=== PATIENT | female | born 1960 | race Caucasian/White ===

== ENCOUNTER 2018-06-09 10:09 | Inpatient (IN) ==
[2018-06-09] MEDS ORDERED: methylPREDNISolone SOD SUC 125 MG/2 ML VIAL IV STA (10:32)
[2018-06-09] MEDS ORDERED: ALBUTEROL 2.5 MG/3 ML NEB RESP TX STA (10:34)
[2018-06-09 11:08] LABS: Basophils % 0.6 % (0.0-0.8); Eosinophils # 0.1 10*3/uL (0.0-0.87); Eosinophils % 2.5 % (0.00-10.9); Hemoglobin 12.4 GM/DL (12.0-16.0); Immature Granulocytes % 0.4 %; Immature Granulocytes Absolute 0.02 #; Lymphocytes # 0.9 10*3/uL (1.4-4.0); Mean Corpuscular HGB Conc 30.2 GM/DL (32-36); Mean Corpuscular Volume 92.6 FL (87-102); Mean Platelet Volume 10.5 FL (9.6-12.0); Neutrophils % 69.5 % (38.7-73.9); Platelet Count 147 T/CUMM (130-400); Red Blood Count 4.43 MC/CUMM (3.8-5.5); Red Cell Distribution Width 16.2 % (9.3-17.3); White Blood Count 5.2 T/CUMM (4-12)
[2018-06-09 11:21] LABS: Apearance,Urine CLOUDY (Clear); Bilirubin,Urine Negative (Negative); Blood, Urine Moderate mg/dL (Negative); Glucose,Urine (UA) Negative (Negative); Ketones,Urine Negative (Negative); Mucus,Urine Occasional /LPF (Occasional); Nitrite,Urine Negative (Negative); Protein,Urine >=500 MG/DL; RBC,Urine 63 /HPF (0-4); Urine Color Amber (Yellow); Urine Specific Gravity 1.019 (1.001-1.035); Urine Urobilinogen < 2.0 EU/DL (0.2-1.0); WBC,Urine 1161 /HPF (0-6)
[2018-06-09 11:45] LABS: Albumin 3.5 G/DL (3.4-5.0); Bilirubin,Total 0.7 MG/DL (0.2-1.0); Calcium 8.2 MG/DL (8.5-10.1); Osmolality,Calculated 279.5 MOS/KG (273-304); Total Protein 8.3 G/DL (6.4-8.3)
[2018-06-09] MEDS ORDERED: FUROSEMIDE 40 MG/4 ML VIAL IV STA (11:52)
[2018-06-09] MEDS ORDERED: cefTRIAXone 1,000 MG in SODIUM CHLORIDE 0.9% 100 ML IV STA (11:53)
[2018-06-09] MEDS ORDERED: PROMETHAZINE 25 MG/1 ML VIAL IM PRN (12:05)
[2018-06-09] MEDS ORDERED: ACETAMINOPHEN 325 MG TABLET PO PRN (12:05)
[2018-06-09] MEDS ORDERED: LOPERAMIDE 2 MG CAPSULE PO PRN (12:46)
[2018-06-09] MEDS ORDERED: MAGNESIUM HYDROXIDE SUSP 30 ML UDCUP PO PRN (12:46)
[2018-06-09] MEDS ORDERED: ALBUTEROL/IPRATROPIUM 3 ML NEB RESP TX SCH (13:00)
[2018-06-09] MEDS: DORNASE ALFA 2.5 MG/2.5 ML VIAL RESP TX SCH ×2 (13:57→19:07)
[2018-06-09] MEDS ORDERED: ALBUTEROL 2.5 MG/3 ML NEB RESP TX PRN (14:30)
[2018-06-09] MEDS ORDERED: traZODone 50 MG TABLET PO PRN (14:30)
[2018-06-09] MEDS: LEVOFLOXACIN INJ 750 MG in PREMIX 1 EACH IV SCH (14:51)
[2018-06-09] MEDS: guaiFENesin/DM ER 600-30 MG TABLET PO SCH ×2 (14:51→20:32)
[2018-06-09] MEDS ORDERED: FUROSEMIDE 40 MG/4 ML VIAL IV SCH (16:00)
[2018-06-09] MEDS: methylPREDNISolone SOD SUC 125 MG/2 ML VIAL IV SCH (16:48)
[2018-06-09] MEDS: CEFEPIME 1,000 MG in SODIUM CHLORIDE 0.9% 100 ML IV SCH (16:49)
[2018-06-09] MEDS: ALBUTEROL/IPRATROPIUM 3 ML NEB RESP TX SCH ×2 (19:07→22:49)
[2018-06-09] MEDS: ATENOLOL 50 MG TABLET PO SCH (20:32)
[2018-06-09] MEDS: DABIGATRAN 150 MG CAPSULE PO SCH (20:32)
[2018-06-10] MEDS: CEFEPIME 1,000 MG in SODIUM CHLORIDE 0.9% 100 ML IV SCH ×3 (01:02→17:53)
[2018-06-10] MEDS: methylPREDNISolone SOD SUC 125 MG/2 ML VIAL IV SCH ×2 (01:03→10:04)
[2018-06-10] MEDS: ALBUTEROL/IPRATROPIUM 3 ML NEB RESP TX SCH ×6 (03:30→23:29)
[2018-06-10 05:35] LABS: Basophils % 0.1 % (0.0-0.8); Hemoglobin 12.3 GM/DL (12.0-16.0); Immature Granulocytes % 0.3 %; Immature Granulocytes Absolute 0.02 #; Lymphocytes # 0.7 10*3/uL (1.4-4.0); Lymphocytes % 10.5 % (21.3-54.2); Mean Corpuscular HGB Conc 31.5 GM/DL (32-36); Mean Corpuscular Volume 89.4 FL (87-102); Mean Platelet Volume 11.2 FL (9.6-12.0); Monocytes % 1.9 % (1.7-12.7); Neutrophils % 87.2 % (38.7-73.9); Platelet Count 153 T/CUMM (130-400); Red Blood Count 4.36 MC/CUMM (3.8-5.5); Red Cell Distribution Width 15.9 % (9.3-17.3)
[2018-06-10 05:57] LABS: Albumin 3.4 G/DL (3.4-5.0); Bilirubin,Total 0.9 MG/DL (0.2-1.0); Calcium 8.3 MG/DL (8.5-10.1); Osmolality,Calculated 281.8 MOS/KG (273-304); Risk Ratio 2.33; Total Protein 8.8 G/DL (6.4-8.3); VLDL CHOLESTEROL 10.8 MG/DL
[2018-06-10] MEDS: DORNASE ALFA 2.5 MG/2.5 ML VIAL RESP TX SCH ×2 (08:45→20:01)
[2018-06-10] MEDS ORDERED: cefTRIAXone 1,000 MG in SODIUM CHLORIDE 0.9% 100 ML IV SCH (09:00)
[2018-06-10] MEDS: DABIGATRAN 150 MG CAPSULE PO SCH ×2 (10:05→20:43)
[2018-06-10] MEDS: PANTOPRAZOLE 40 MG TABLET PO SCH (10:05)
[2018-06-10] MEDS: guaiFENesin/DM ER 600-30 MG TABLET PO SCH ×2 (10:05→20:43)
[2018-06-10] MEDS: ATORVASTATIN 20 MG TABLET PO SCH (10:05)
[2018-06-10] MEDS: ATENOLOL 50 MG TABLET PO SCH ×2 (10:05→20:43)
[2018-06-10] MEDS: SERTRALINE 50 MG TABLET PO SCH (10:05)
[2018-06-10] MEDS: ONDANSETRON 4 MG/2 ML VIAL IV PRN ×2 (15:19→22:20)
[2018-06-10] MEDS: LEVOFLOXACIN INJ 750 MG in PREMIX 1 EACH IV SCH (15:19)
[2018-06-10] MEDS: methylPREDNISolone SOD SUC 40 MG/1 ML VIAL IV SCH (17:53)
[2018-06-10] MEDS: ALUMINUM/MAGNES/SIMETH MAX STR 30 ML UDCUP PO PRN (23:57)
[2018-06-11] MEDS: methylPREDNISolone SOD SUC 40 MG/1 ML VIAL IV SCH ×3 (01:41→20:56)
[2018-06-11] MEDS: CEFEPIME 1,000 MG in SODIUM CHLORIDE 0.9% 100 ML IV SCH ×2 (01:42→08:43)
[2018-06-11] MEDS: ALBUTEROL/IPRATROPIUM 3 ML NEB RESP TX SCH ×2 (03:32→07:26)
[2018-06-11] MEDS: DORNASE ALFA 2.5 MG/2.5 ML VIAL RESP TX SCH ×2 (07:34→19:46)
[2018-06-11 08:31] LABS: Calcium 8.6 MG/DL (8.5-10.1); Osmolality,Calculated 288.8 MOS/KG (273-304)
[2018-06-11] MEDS: ATENOLOL 50 MG TABLET PO SCH ×2 (08:41→20:53)
[2018-06-11] MEDS: PANTOPRAZOLE 40 MG TABLET PO SCH (08:41)
[2018-06-11] MEDS: guaiFENesin/DM ER 600-30 MG TABLET PO SCH ×2 (08:41→20:52)
[2018-06-11] MEDS: SERTRALINE 50 MG TABLET PO SCH (08:42)
[2018-06-11] MEDS: DABIGATRAN 150 MG CAPSULE PO SCH ×2 (08:42→20:53)
[2018-06-11] MEDS: ATORVASTATIN 20 MG TABLET PO SCH (08:42)
[2018-06-11] MEDS: CLINDAMYCIN INJ 600 MG in PREMIX 1 EACH IV SCH ×2 (12:30→20:57)
[2018-06-11] MEDS: LEVALBUTEROL 0.63 MG/3 ML NEB RESP TX SCH ×2 (13:36→19:46)
[2018-06-11] MEDS: LEVOFLOXACIN INJ 750 MG in PREMIX 1 EACH IV SCH (15:42)
[2018-06-11] MEDS ORDERED: ERTAPENEM 1,000 MG in SODIUM CHLORIDE 0.9% 100 ML IV SCH (16:00)
[2018-06-11] MEDS: ALUMINUM/MAGNES/SIMETH MAX STR 30 ML UDCUP PO PRN (23:29)
[2018-06-12] MEDS: LEVALBUTEROL 0.63 MG/3 ML NEB RESP TX SCH ×2 (00:38→07:24)
[2018-06-12] MEDS: CLINDAMYCIN INJ 600 MG in PREMIX 1 EACH IV SCH (04:32)
[2018-06-12 05:30] LABS: Albumin 3.3 G/DL (3.4-5.0); Bilirubin,Total 0.7 MG/DL (0.2-1.0); Calcium 8.7 MG/DL (8.5-10.1); Osmolality,Calculated 292.7 MOS/KG (273-304); Total Protein 8.7 G/DL (6.4-8.3)
[2018-06-12 05:49] LABS: Basophils % 0.1 % (0.0-0.8); Hematocrit 42.5 VOL% (35.7-47.0); Hemoglobin 12.9 GM/DL (12.0-16.0); Immature Granulocytes % 0.6 %; Immature Granulocytes Absolute 0.06 #; Lymphocytes % 10.2 % (21.3-54.2); Mean Corpuscular HGB Conc 30.4 GM/DL (32-36); Mean Corpuscular Volume 92.8 FL (87-102); Mean Platelet Volume 10.3 FL (9.6-12.0); Monocytes % 3.6 % (1.7-12.7); Neutrophils % 85.5 % (38.7-73.9); Platelet Count 186 T/CUMM (130-400); Red Blood Count 4.58 MC/CUMM (3.8-5.5); Red Cell Distribution Width 15.9 % (9.3-17.3)
[2018-06-12] MEDS: PANTOPRAZOLE 40 MG TABLET PO SCH (06:02)
[2018-06-12] MEDS: DORNASE ALFA 2.5 MG/2.5 ML VIAL RESP TX SCH ×2 (07:18→19:04)
[2018-06-12] MEDS: ARFORMOTEROL 15 MCG/2 ML NEB RESP TX SCH ×2 (08:34→18:59)
[2018-06-12] MEDS: ATENOLOL 50 MG TABLET PO SCH ×2 (10:05→20:18)
[2018-06-12] MEDS: methylPREDNISolone SOD SUC 40 MG/1 ML VIAL IV SCH ×2 (10:05→16:37)
[2018-06-12] MEDS: guaiFENesin/DM ER 600-30 MG TABLET PO SCH ×2 (10:05→20:18)
[2018-06-12] MEDS: ATORVASTATIN 20 MG TABLET PO SCH (10:06)
[2018-06-12] MEDS: DABIGATRAN 150 MG CAPSULE PO SCH ×2 (10:06→20:18)
[2018-06-12] MEDS: SERTRALINE 50 MG TABLET PO SCH (10:06)
[2018-06-12] MEDS: MEROPENEM 1,000 MG in SODIUM CHLORIDE 0.9% 100 ML IV SCH ×2 (10:24→16:36)
[2018-06-12] MEDS: LEVOFLOXACIN 750 MG TABLET PO SCH (10:25)
[2018-06-13] MEDS: methylPREDNISolone SOD SUC 40 MG/1 ML VIAL IV SCH ×3 (01:17→16:21)
[2018-06-13] MEDS: MEROPENEM 1,000 MG in SODIUM CHLORIDE 0.9% 100 ML IV SCH ×3 (01:18→16:20)
[2018-06-13] MEDS: PANTOPRAZOLE 40 MG TABLET PO SCH (06:39)
[2018-06-13] MEDS: ARFORMOTEROL 15 MCG/2 ML NEB RESP TX SCH ×2 (07:13→19:06)
[2018-06-13] MEDS: DORNASE ALFA 2.5 MG/2.5 ML VIAL RESP TX SCH ×2 (07:13→19:09)
[2018-06-13] MEDS: ATENOLOL 50 MG TABLET PO SCH ×2 (08:47→20:10)
[2018-06-13] MEDS: ATORVASTATIN 20 MG TABLET PO SCH (08:48)
[2018-06-13] MEDS: SERTRALINE 50 MG TABLET PO SCH (08:48)
[2018-06-13] MEDS: DABIGATRAN 150 MG CAPSULE PO SCH ×2 (08:48→20:09)
[2018-06-13] MEDS: LEVOFLOXACIN 750 MG TABLET PO SCH (08:48)
[2018-06-13] MEDS: guaiFENesin/DM ER 600-30 MG TABLET PO SCH ×2 (08:48→20:09)
[2018-06-13] MEDS: MONTELUKAST 10 MG TABLET PO SCH (20:14)
[2018-06-14] MEDS: methylPREDNISolone SOD SUC 40 MG/1 ML VIAL IV SCH ×2 (01:33→08:28)
[2018-06-14] MEDS: MEROPENEM 1,000 MG in SODIUM CHLORIDE 0.9% 100 ML IV SCH ×2 (01:33→08:27)
[2018-06-14 05:28] LABS: Basophils % 0.2 % (0.0-0.8); Hematocrit 40.3 VOL% (35.7-47.0); Hemoglobin 12.5 GM/DL (12.0-16.0); Immature Granulocytes % 1.7 %; Lymphocytes # 1.1 10*3/uL (1.4-4.0); Mean Corpuscular Volume 92.2 FL (87-102); Mean Platelet Volume 10.9 FL (9.6-12.0); Monocytes % 5.6 % (1.7-12.7); Neutrophils % 73.5 % (38.7-73.9); Platelet Count 189 T/CUMM (130-400); Red Blood Count 4.37 MC/CUMM (3.8-5.5); Red Cell Distribution Width 15.6 % (9.3-17.3); White Blood Count 5.9 T/CUMM (4-12)
[2018-06-14 05:37] LABS: Calcium 8.5 MG/DL (8.5-10.1); Osmolality,Calculated 286.7 MOS/KG (273-304)
[2018-06-14] MEDS: PANTOPRAZOLE 40 MG TABLET PO SCH (05:59)
[2018-06-14] MEDS: ARFORMOTEROL 15 MCG/2 ML NEB RESP TX SCH (07:52)
[2018-06-14] MEDS: DORNASE ALFA 2.5 MG/2.5 ML VIAL RESP TX SCH (07:53)
[2018-06-14] MEDS: ATORVASTATIN 20 MG TABLET PO SCH (08:31)
[2018-06-14] MEDS: ATENOLOL 50 MG TABLET PO SCH (08:32)
[2018-06-14] MEDS: DABIGATRAN 150 MG CAPSULE PO SCH (08:32)
[2018-06-14] MEDS: LEVOFLOXACIN 750 MG TABLET PO SCH (08:33)
[2018-06-14] MEDS: SERTRALINE 50 MG TABLET PO SCH (08:33)
[2018-06-14] MEDS: MONTELUKAST 10 MG TABLET PO SCH (08:33)
[2018-06-14] MEDS: guaiFENesin/DM ER 600-30 MG TABLET PO SCH (08:59)
[2018-06-14 11:59] VITALS: BP 114/73
== END 2018-06-14 15:15 | DRG 140 ==
LOC: N.ED 10:09 → SUATTDRO 12:05 → N.EDINP 12:05 → N.2E 14:14
PROVIDERS: ADMIT Internal Medicine Cardiovascular Disease; ATTEND Hospitalist